=== PATIENT | male | born 1985 ===

== ENCOUNTER 2021-07-04 14:21 | Emergency (ER) | payer BC, OTHER ==
[~2021-07-04] VITALS: Ht 177.8 cm; Wt 108.9 kg
[~2021-07-04 14:21] MED LIST: CEPH500 PO; CLAR500 PO; HYDACE5 PO; METR500 PO; OMEP40CA12 PO; RXCEPH500 PO; TYLENOL COLD; [UNRECOGNIZED DRUG - OTHER]
[2021-07-04] MEDS ORDERED: CYCL10 PO (16:13)
== END 2021-07-04 16:23 | disposition home or self-care (01) ==
LOC: ER 14:21
DX: S39.012A Strain of muscle, fascia and tendon of lower back, initial encounter (principal); I10 Essential (primary) hypertension; Z79.899 Other long term (current) drug therapy; X50.9XXA Other and unspecified overexertion or strenuous movements or postures, initial encounter
CPT/HCPCS: 72100; 99283-25; A9270; J1885

== ENCOUNTER 2022-08-14 19:59 | Emergency (ER) | payer BC, OTHER ==
[~2022-08-14] VITALS: Ht 177.8 cm; Wt 106.6 kg
[~2022-08-14 19:59] MED LIST changes: +CYCL10 PO
[2022-08-14 20:24] LABS: BASOPHILS ABSOLUTE AUTO 0.03 K/mm3 (0.00-0.23); BASOPHILS PERCENT AUTO 0 % (0-2); EOSINOPHILS ABSOLUTE AUTO 0.04 K/mm3 (0.00-0.68); EOSINOPHILS PERCENT AUTO 0 % (0-6); Hematocrit 46.9 % (37.0-53.0); Hemoglobin 16.1 g/dL (13.5-17.5); IMMATURE GRAN ABSOLUTE AUTO 0.09 K/mm3 (0.00-0.10); IMMATURE GRAN PERCENT AUTO 1 % (0-1); LYMPHOCYTES ABSOLUTE AUTO 1.73 K/mm3 (0.84-5.20); LYMPHOCYTES PERCENT AUTO 17 % (21-46); MONOCYTES ABSOLUTE AUTO 0.71 K/mm3 (0.16-1.47); MONOCYTES PERCENT AUTO 7 % (4-13); Mean Corpuscular HGB 30.5 pg (26.0-34.0); Mean Corpuscular HGB Conc 34.3 g/dL (31.5-36.5); Mean Corpuscular Volume 89 fL (80-100); Mean Platelet Volume 9.5 fL (9.1-12.4); NEUTROPHILS ABSOLUTE AUTO 7.57 K/mm3 (1.96-9.15); NEUTROPHILS PERCENT AUTO 74 % (41-73); Platelet Count 332 K/mm3 (150-400); RDW Coefficient Variation 12.4 % (11.7-14.2); RDW Standard Deviation 40.5 fL (35.1-46.3); Red Blood Cell Count 5.28 M/mm3 (4.30-5.90); White Blood Cell Count 10.17 K/mm3 (4.00-11.30)
[2022-08-14] MEDS ORDERED: ZESTRIL40 M1 PO (20:41)
[2022-08-14 20:42] LABS: Albumin, Blood 4.1 g/dL (3.4-5.0); Albumin/Globulin Ratio 1.1 (0.8-1.8); Bilirubin, Total 0.4 mg/dL (0.1-1.0); Bun/Creatinine Ratio 13.2 (12.0-20.0); Calcium, Blood 8.7 mg/dL (8.5-10.1); Creatinine, Blood 0.91 mg/dL (0.60-1.20); Globulin, Blood 3.9 g/dL (2.2-4.0); Potassium, Blood 3.9 mmol/L (3.5-5.5)
[2022-08-14] MEDS ORDERED: Zovirax800 MG PO (22:07)
[2022-08-14] MEDS ORDERED: Prednisone20 MG PO (22:07)
== END 2022-08-14 22:34 | disposition home or self-care (01) ==
LOC: ER 19:59
PROVIDERS: Emergency Medicine
DX: G51.0 Bell's palsy (principal); M79.18 Myalgia, other site; I10 Essential (primary) hypertension; Z79.899 Other long term (current) drug therapy
CPT/HCPCS: 36415; 70496; 70498; 80053; 85025; 93005; 93010; 99284-25; A9270; J0360; J7512; Q9967